=== PATIENT | female | born 1985 | race Caucasian/White ===

== ENCOUNTER → 2024-01-31 | Outpatient (CLI) | payer OTHER ==
--- NOTE | 2024-01-31 17:29 | CT ---
EXAMINATION TYPE: CT cervical spine wo con CT DLP: 410.3 mGycm, Automated exposure control for dose reduction was used. DATE OF EXAM: 01/31/2024 5:11 PM COMPARISON: CT 01/31/2024. CLINICAL INDICATION: Female, 38 years old with history of S13.4XXA, S40.011A, S70.01XA, S30.0XXA; [facility] , CABINETS FELL ON PTS RT SIDE [id number] AGO. TECHNIQUE: Axial CT images from the skull base to the inferior aspect of T2 we obtained without intra venous contrast. Coronal and sagittal reformatted images were also reviewed. Contrast used: mL of , (if blank None) Oral contrast used: (if blank None) FINDINGS: Fracture: None. Osseous structures: Multilevel degenerative disc disease changes with endplate spurring and disc oste ophyte complex's. Vertebral alignment: Alignment within normal limits. Spinal canal/Neural Foramina: No evidence of significant spinal canal narrowing. No evidence for sign ificant neural foraminal stenosis. Neck soft tissues: Prevertebral soft tissues are within normal limits. Other: The airway is patent. The lung apices are clear. IMPRESSION: 1. No evidence of cervical spine fracture. 2. Mild multilevel degenerative disc disease. [facility], , 01/31/2024 5:27 PM
--- NOTE | 2024-01-31 18:33 | XR ---
EXAMINATION TYPE: XR lumbar spine 2 or 3V DATE OF EXAM: 01/31/2024 6:08 PM CLINICAL INDICATION: Female, 38 years old with history of S13.4XXA, S40.011A, S70.01XA, S30.0XXA; [facility] COMPARISON: None TECHNIQUE: XR lumbar spine 2 or 3V - Frontal, lateral and coned in L5-S1 lateral views of the spine. FINDINGS: No evidence of any acute osseous pathology. No evidence of loss of vertebral body height i s seen. There is normal alignment of the lumbar vertebral bodies. Minimal disc degeneration and facet joint arthropathy present. IMPRESSION: 1. No acute fracture. 2. Minimal multilevel disc degeneration. [facility], , 01/31/2024 6:30 PM
--- NOTE | 2024-01-31 18:33 | XR ---
EXAMINATION TYPE: XR Hip RT and AP Pelvis DATE OF EXAM: 01/31/2024 6:08 PM CLINICAL INDICATION: Female, 38 years old with history of S13.4XXA, S40.011A, S70.01XA, S30.0XXA; [facility] COMPARISON: None. TECHNIQUE: XR Hip RT and AP Pelvis; hip was examined in the frontal and lateral projections and a AP pelvis. FINDINGS: No evidence for acute process, joint dislocation or significant soft tissue swelling. Osteo phyte formation of the superior acetabulum of the hip. There is mild joint space narrowing. IMPRESSION: 1. No evidence for acute process. 2. Mild hip osteoarthrosis. [facility], , 01/31/2024 6:31 PM
--- NOTE | 2024-01-31 18:34 | XR ---
EXAMINATION TYPE: XR cervical spine limited DATE OF EXAM: 01/31/2024 6:17 PM CLINICAL INDICATION: Female, 38 years old with history of PAIN; [facility] COMPARISON: None TECHNIQUE: The cervical spine was imaged in frontal, lateral, and odontoid. FINDINGS: The osseous structures show normal alignment without evidence of an acute fracture. There are osteoph ytes worse at C5-C6. The intervertebral disk spaces is narrowed at this level. Pedicles are intact. Soft tissues are within normal limits. The odontoid appears intact. IMPRESSION: 1. No fracture or dislocation. 2. Mild degenerative disc disease changes of the cervical spine. [facility], , 01/31/2024 6:32 PM
--- NOTE | 2024-01-31 18:35 | XR ---
EXAMINATION TYPE: XR shoulder complete RT DATE OF EXAM: 01/31/2024 6:08 PM CLINICAL INDICATION: Female, 38 years old with history of S13.4XXA, S40.011A, S70.01XA, S30.0XXA; [facility] COMPARISON: None TECHNIQUE: XR shoulder complete RT; examined in AP, internally rotated and scapular Y projections. FINDINGS: No evidence of acute osseous pathology, joint dislocation, or soft tissue swelling. The remaining po rtions of the visualized chest are unremarkable. IMPRESSION: No acute osseous pathology. [facility], , 01/31/2024 6:33 PM
--- NOTE | 2024-01-31 18:35 | XR ---
EXAMINATION TYPE: XR ribs RT w pa chest xray DATE OF EXAM: 01/31/2024 6:08 PM CLINICAL INDICATION: Female, 38 years old with history of S13.4XXA, S40.011A, S70.01XA, S30.0XXA; [facility] COMPARISON: None TECHNIQUE: XR ribs RT w pa chest xray; Frontal and oblique views of the ribs with frontal chest radio graph. FINDINGS: The ribs have a normal appearance. No evidence of fracture. Overall, the lungs are clear. The cardiac silhouette is normal in size. The remaining osseous structures are intact. IMPRESSION: No acute osseous pathology. [facility], , 01/31/2024 6:33 PM
== END | disposition home or self-care (01) ==
LOC: RADXRMAIN 16:42
PROVIDERS: ATTEND Emergency Medicine
DX: S13.4XXA Sprain of ligaments of cervical spine, initial encounter (principal); S40.011A Contusion of right shoulder, initial encounter; S70.01XA Contusion of right hip, initial encounter; S30.0XXA Contusion of lower back and pelvis, initial encounter; M50.30 Other cervical disc degeneration, unspecified cervical region; M51.36 Other intervertebral disc degeneration, lumbar region; M47.816 Spondylosis without myelopathy or radiculopathy, lumbar region; M16.11 Unilateral primary osteoarthritis, right hip; X58.XXXA Exposure to other specified factors, initial encounter
CPT/HCPCS: 72040; 72100; 72125; 73502

== ENCOUNTER → 2024-02-02 | Outpatient (CLI) | payer OTHER ==
--- NOTE | 2024-02-02 12:57 | CT ---
EXAMINATION TYPE: CT brain wo con CT DLP: 1168 mGycm, Automated exposure control for dose reduction was used. DATE OF EXAM: 02/02/2024 12:47 PM COMPARISON: None. CLINICAL INDICATION:Female, 38 years old with history of G44.301 POST-TRAUMATIC HEADACHE, UNSPECI S2 3.3XXD, Post traumatic [place]STEAD. TECHNIQUE: Brain: Multiple axial CT images of the brain were obtained without IV contrast. . Coronal and sagitta l reformats reviewed. FINDINGS: Brain: Extra-axial spaces: No abnormal extra-axial fluid collections. Ventricular system: Within normal limits Cerebral parenchyma: No acute intraparenchymal hemorrhage or mass effect. The koroma-white junction is well differentiated. Cerebellum: Unremarkable. Mass effect: No evidence of midline shift. Intracranial vasculature: unremarkable Soft tissues: Normal. Calvarium/osseous structures: No depressed skull fracture. Paranasal sinuses and mastoid air cells: Clear Visualized orbits: Orbital contents are intact. IMPRESSION: No acute intracranial process. [facility], , 02/02/2024 12:55 PM
--- NOTE | 2024-02-02 13:02 | XR ---
EXAMINATION TYPE: XR thoracic spine complete DATE OF EXAM: 02/02/2024 12:56 PM INDICATION: Patient age:Female; 38 years old; Reason for study: G44.301 POST-TRAUMATIC HEADACHE, UNSPECI S23.3XXD; [facility]. COMPARISON: None TECHNIQUE: 3 views of the thoracic spine in frontal, lateral, and swimmer's projections. FINDINGS: No evidence of acute fracture. There is no evidence of disk space narrowing or loss of vertebral bod y height. There is normal alignment of the thoracic vertebral bodies. IMPRESSION: No acute osseous pathology. [facility], , 02/02/2024 1:00 PM
== END | disposition home or self-care (01) ==
LOC: RADCTMAIN 12:25
PROVIDERS: ATTEND Emergency Medicine
DX: S23.3XXD Sprain of ligaments of thoracic spine, subsequent encounter (principal); G44.301 Post-traumatic headache, unspecified, intractable; Y99.9 Unspecified external cause status
CPT/HCPCS: 70450; 72072

== ENCOUNTER → 2024-02-29 | Outpatient (CLI) | payer OTHER ==
--- NOTE | 2024-02-29 15:12 | CT ---
EXAMINATION TYPE: CT hip RT wo con CT DLP: 914 mGycm, Automated exposure control for dose reduction was used. DATE OF EXAM: 02/29/2024 2:56 PM COMPARISON: Right hip radiograph 01/31/2024 CLINICAL INDICATION:Female, 38 years old with history of S70.01XD CONTUSION RIGHT HIP; [facility], Work inju ry. Heavy object fell on hip. Pt having on going right hip pain. TECHNIQUE: Axial images were obtained of the right hip without the use of IV contrast. Additional co j luis and sagittal reformatted images and soft tissue and bone window were obtained for review. 3-D r econstruction was created on a separate workstation. FINDINGS: There is no evidence of fracture, subluxation, or dislocation. No significant soft tissue swelling or joint effusion is identified. No significant joint space narrowing or osteoarthritic olson ge. No focal muscular atrophy or edema is identified. No radiopaque foreign body identified. IMPRESSION: No acute fracture or dislocation. [facility], , 02/29/2024 3:10 PM
== END | disposition home or self-care (01) ==
LOC: RADCTMAIN 14:32
PROVIDERS: ATTEND Emergency Medicine
DX: S70.01XD Contusion of right hip, subsequent encounter (principal)

== ENCOUNTER → 2024-03-21 | Outpatient (CLI) | payer OTHER ==
--- NOTE | 2024-03-21 15:15 | XR ---
EXAMINATION TYPE: XR shoulder complete RT DATE OF EXAM: 03/21/2024 3:08 PM INDICATION: Patient age:Female; 38 years old; Reason for study: S40.011D; COMPARISON: Right shoulder radiograph 01/31/2024 TECHNIQUE: The right shoulder was examined in AP, internally rotated and scapular Y projections. . FINDINGS: No evidence of acute osseous pathology, joint dislocation, or soft tissue swelling. The remaining por tions of the visualized chest are unremarkable. IMPRESSION: No acute osseous pathology. [facility], , 03/21/2024 3:13 PM
== END | disposition home or self-care (01) ==
LOC: RADXRMAIN 14:53
PROVIDERS: ATTEND Emergency Medicine
DX: S40.011D Contusion of right shoulder, subsequent encounter (principal)